=== PATIENT | male | born 1975 | race Caucasian/White ===

== ENCOUNTER 2019-12-28 10:24 | Emergency (ER) | payer BC, SELFPAY ==
[2019-12-28 10:26] VITALS: BP 120/70; PULSE 112; RESP 18; TEMP 39.2; O2SAT 93; BMI 33.0
--- NOTE | 2019-12-28 10:49 | EKG12_ITS ---
Test Reason : GEN ILLNESS Blood Pressure : / mmHG Vent. Rate : 103 BPM Atrial Rate : 103 BPM P-R Int : 134 ms QRS Dur : 082 ms QT Int : 324 ms P-R-T Axes : 007 089 030 degrees QTc Int : 424 ms Sinus tachycardia Otherwise normal ECG Confirmed by JAYLYN FINNEY, KYLIE ([id number]), copy editor ISRRAEL PANDYA ([id number]) on 12/30/2019 9:03:25 AM Referred By: Confirmed By:KYLIE DE LA O MD
--- NOTE | 2019-12-28 10:56 | NURSING ---
NO OLD EKGS
[2019-12-28 11:05] VITALS: BP 131/75; PULSE 99; RESP 33; TEMP 39.1; O2SAT 90
[2019-12-28] MEDS: Ketorolac 30 MG/ML Syringe IV (11:19)
[2019-12-28] MEDS: 0.9% Normal Saline 1,000 ML 999 ML IV ×2 (11:19→13:21)
[2019-12-28] MEDS: 0.9% Normal Saline 1,000 ML 250 ML IV (11:25)
--- NOTE | 2019-12-28 11:29 | ED.VIS.GEN ---
History of Present Illness Chief Complaint: General Illness Informant: Patient Narrative: 44-year-old male presents for the evaluation of fever diarrhea and cough. He has been sick for 1 week. He states he has had 2 Covid test that were negative. He continues to have diarrhea and fever. He notes that his abdomen is slightly sore in the right upper quadrant with coughing and touch. He notes generalized body aches and states it has been hard for him to eat and drink. He denies any significant medical problems. He has not taken any antidiarrheal medication. He went to urgent care and was given prednisone Augmentin and Tessalon and albuterol MDI. Past Medical History - Allergies and Home Meds Allergies/Adverse Reactions: Allergies No Known Allergies Allergy (Verified 12/28/19 10:29) Primary Care Physician: Adonay Bo MD [Primary Care Provider] - Prior records reviewed: Yes Past Medical History: None Surgical History: noncontributory Drugs: None Review of Systems General: Reports: Chills, Fever, Malaise. Denies: Sweats Eyes: Reports: - - Loss of smell/taste. Denies: Visual changes - bilaterally, Diplopia ENT: Denies: Rhinorrhea, Sore throat Cardiovascular: Denies: Chest pain, Palpitations Respiratory: Reports: Dyspnea, Cough. Denies: Dyspnea on exertion Gastrointestinal: Reports: Abdominal pain, Diarrhea. Denies: Nausea, Vomiting, Melena, Hematochezia Genitourinary: Denies: Dysuria, Hematuria, Frequency Musculoskeletal: Reports: Myalgias. Denies: Back pain, Extremity Pain Skin: Denies: Rash, Wounds Neurological: Reports: Headache. Denies: Weakness, Numbness Physical Exam Vital Signs/Narrative: Vital Signs Temp Pulse Resp BP Pulse Ox 12/28/19 10:26 102.6 F H 112 H 18 120/70 93 General: Well nourished, Well developed, No Acute Distress Head: Normocephalic, Atraumatic Eyes: Perrl, EOMI ENT: Moist mucous membranes, No rhinorrhea Neck: Supple, Nontender Cardiovascular: Regular rate, Regular rhythm, No murmurs, Tachycardia Respiratory: No distress, CTA bilaterally, Chest nontender Abdomen: Soft, Nontender, Nondistended, Normal bowel sounds Back: Nontender, Normal Inspection Extremities: Nontender, No edema Skin: Normal color, No rash Neurological: Alert, Oriented x3, Cranial nerves II-XII grossly intact, Normal Strength, Normal Sensation Psychological: Normal affect, Normal Mood Diagnostic/Tx/Re-eval Clinical Impression(s) from Imaging Studies Chest X-Ray 12/28/19 11:40 IMPRESSION: Bilateral pneumonia. Electronically Signed: Asif Angel MD at 12:18 EDT Tel , Service support , Laboratory Last Values WBC 7.8 K/mm3 (4.4-11.0) 12/28/19 11:30 RBC 4.92 M/mm3 (4.6-6.2) 12/28/19 11:30 Hgb 15.2 g/dL (13.0-16.5) 12/28/19 11:30 Hct 44.9 % (40-54) 12/28/19 11:30 MCV 91.3 fL (80-94) 12/28/19 11:30 MCH 30.9 pg (27.0-32.0) 12/28/19 11:30 MCHC 33.9 g/dL (32-36) 12/28/19 11:30 RDW Std Deviation 41.1 fl (35.1-43.9) 12/28/19 11:30 RDW Coeff of Jatin 12.4 % (11.6-14.6) 12/28/19 11:30 Plt Count TNP 12/28/19 11:30 MPV 11.3 fl (6.2-12.0) 12/28/19 11:30 Immature Gran % (Auto) 1.200 % (0.0-0.9) H 12/28/19 11:30 Neut % (Auto) 79.3 % (47-70) H 12/28/19 11:30 Lymph % (Auto) 9.7 % (19-41) L 12/28/19 11:30 [place] % (Auto) 9.6 % (0-10) 12/28/19 11:30 Eos % (Auto) 0.1 % (0-5) 12/28/19 11:30 Baso % (Auto) 0.1 % (0-1) 12/28/19 11:30 Absolute Neuts (auto) 6.2 X10^3/uL (2.0-7.7) 12/28/19 11:30 Absolute Lymphs (auto) 0.76 X10^3/uL (0.83-4.51) L 12/28/19 11:30 Nucleated RBC % 0 % (0-5) 12/28/19 11:30 Platelet Estimate ADEQUATE (ADEQ) 12/28/19 11:30 PT 13.1 SECONDS (11.7-14.9) 12/28/19 11:30 INR 1.0 12/28/19 11:30 APTT < 24.1 Seconds (24.1-36.2) L 12/28/19 11:30 Sodium 134 mmol/L (136-145) L 12/28/19 11:30 Potassium 4.4 mmol/L (3.5-5.1) 12/28/19 11:30 Chloride 103 mmol/L (98-107) 12/28/19 11:30 Carbon Dioxide 19.0 mmol/L (21.0-32.0) L 12/28/19 11:30 Anion Gap 12 (5-15) 12/28/19 11:30 BUN 15 mg/dL (7-18) 12/28/19 11:30 Creatinine 1.03 mg/dL (0.70-1.30) 12/28/19 11:30 Estim Creat Clear Calc 103.43 ml/min 12/28/19 11:30 Est GFR (MDRD) Af Amer 101 mL/min (>60) 12/28/19 11:30 Est GFR (MDRD) Non-Af 83 mL/min (>60) 12/28/19 11:30 BUN/Creatinine Ratio 14.6 RATIO (-20) 12/28/19 11:30 Glucose 112 mg/dL (74-106) H 12/28/19 11:30 Lactic Acid 1.0 mmol/L (0.4-1.9) 12/28/19 11:30 Calcium 7.7 mg/dL (8.5-10.1) L 12/28/19 11:30 Total Bilirubin 0.60 mg/dL (0.20-1.00) 12/28/19 11:30 AST 56 U/L (15-37) H 12/28/19 11:30 ALT 52 U/L (16-61) 12/28/19 11:30 Alkaline Phosphatase 52 U/L (45-117) 12/28/19 11:30 Troponin I < 0.015 ng/mL (<0.045) 12/28/19 11:30 Total Protein 6.8 g/dL (6.4-8.2) 12/28/19 11:30 Albumin 3.3 g/dL (3.2-5.0) 12/28/19 11:30 Globulin 3.5 g/dL (2.2-4.2) 12/28/19 11:30 Albumin/Globulin Ratio 0.9 RATIO (0.9-2.4) 12/28/19 11:30 Urine Color Yellow (Yellow) 12/28/19 11:30 Urine Clarity Clear (Clear) 12/28/19 11:30 Urine pH 6.0 (5.0 - 8.0) 12/28/19 11:30 Ur Specific [place] 1.020 (1.002-1.030) 12/28/19 11:30 Urine Protein 100 mg/dl (Negative) H 12/28/19 11:30 Urine Glucose (UA) Normal mg/dl (Normal) 12/28/19 11:30 Urine Ketones 5 mg/dl (Negative) H 12/28/19 11:30 Urine Occult Blood 150 /ul (Negative) H 12/28/19 11:30 Urine Nitrite Negative (Negative) 12/28/19 11:30 Urine Bilirubin Negative mg/dL (Negative) 12/28/19 11:30 Urine Urobilinogen Normal mg/dl (Normal) 12/28/19 11:30 Ur Leukocyte Esterase 25 /ul (Negative) H 12/28/19 11:30 Urine RBC 0 SEEN /hpf (0-5) 12/28/19 11:30 Urine WBC 0-5 SEEN /hpf (0-5) 12/28/19 11:30 Ur Squamous Epith Cells 0 SEEN /hpf (0-5) 12/28/19 11:30 Urine Bacteria 1+ /hpf (None Seen) 12/28/19 11:30 Urine Mucus 2+ /hpf (<or=2+) 12/28/19 11:30 - EKG Initial EKG Interpretation: Sinus Tachycardia - EKG demonstrates a sinus tachycardia at a rate of 103 without ectopy. - Medical Decision Making Patient received Toradol and IV fluids. Chest x-ray is concerning for Covid and his symptoms are very concerning for Covid. We will send a PCR test. His vital signs are reassuring. I recommend that he continue the antibiotics prednisone and inhaler at home. Continue to hydrate. Imodium for diarrhea return if worsening or concerns ED Disposition - Plan for ED Patient: Disposition: Home or Assisted Living Diagnosis: COVID-19 Referrals: Adonay Bo MD [Primary Care Provider] - As Needed Additional Instructions: Continue your medications as prescribed Drink plenty of fluids to stay hydrated I would recommend Imodium as needed for diarrhea.
[2019-12-28 11:40] LABS: Red Blood Cells-Urine 0 SEEN /hpf (0-5); Squamous Epithelial Cells - UA 0 SEEN /hpf (0-5)
--- NOTE | 2019-12-28 11:40 | RAD_ITS ---
STUDY: X-RAY CHEST REASON FOR EXAM: Male, 44 years old. COUGH, SOB, DIARRHEA, NO TASTE OR SMELL FOR 1 WEEK. TECHNIQUE: Single AP portable view of the chest. COMPARISON: None. FINDINGS: Patchy alveolar opacities throughout both lungs consistent with bilateral pneumonia. There is no demonstrated pleural abnormality. Normal size heart. Normal mediastinum and aracelis. Normal visualized pulmonary arteries. Normal visualized aortic arch and descending thoracic aorta. Normal visualized thoracic spine. Normal visualized ribs, clavicles, and shoulders. There is no demonstrated abnormality of the visualized soft tissue structures of the upper abdomen. RAD/Chest 1 View (Portable) IMPRESSION: Bilateral pneumonia. Electronically Signed: Asif Angel MD at 12:18 EDT Tel , Service support ,
[2019-12-28 11:44] LABS: Color, Urine Yellow (Yellow); Glucose, Dipstick Normal (Normal); Ketone-Dipstick 5 mg/dl (Negative); Leukocyte Esterase-Dipstick 25 /ul (Negative); Nitrite-Dipstick Negative (Negative); Occult Blood-Urine 150 /ul (Negative); Protein-Dipstick 100 mg/dl (Negative); Urine Bilirubin Dipstick Negative (Negative); Urine Clarity Clear (Clear); Urine Urobilinogen Normal (Normal)
[2019-12-28 11:47] LABS: Absolute Lymphocyte Count 0.76 X10^3/uL (0.83-4.51); Absolute Neutrophil Count 6.2 X10^3/uL (2.0-7.7); Basophil# 0.01 X10^3/uL; Basophil% 0.1 % (0-1); Eosinophil# 0.01 X10^3/uL; Eosinophils% 0.1 % (0-5); Hematocrit 44.9 % (40-54); Hemoglobin 15.2 g/dL (13.0-16.5); Lymphocyte # 0.76 X10^3/ul (4.0); Lymphocyte % 9.7 % (19-41); Mean Corp Hgb Conc 33.9 g/dL (32-36); Mean Corpuscular Hgb 30.9 pg (27.0-32.0); Mean Corpuscular Volume 91.3 fL (80-94); Mean Platelet Vol. 11.3 fl (6.2-12.0); Monocyte# 0.75 X10^3/uL; Monocyte% 9.6 % (0-10); NRBC Flagged by Analyzer 0 % (0-5); Neutrophil % 79.3 % (47-70); POSITIVE COUNT YES; RBC Distribution Width CV 12.4 % (11.6-14.6); RBC Distribution Width SD 41.1 fl (35.1-43.9); Red Blood Count 4.92 M/mm3 (4.6-6.2); White Blood Count 7.8 K/mm3 (4.4-11.0)
[2019-12-28 11:50] LABS: Bacteria 1+ /hpf (None Seen); Differential Indicated SCAN CRITERIA MET; Mucous, Urine 2+ /hpf (<or=2+); White Blood Cells 0-5 SEEN /hpf (0-5)
[2019-12-28 11:52] LABS: Prothrombin Time (Protime)PT. 13.1 SECONDS (11.7-14.9)
[2019-12-28 12:00] VITALS: BP 117/78; PULSE 89; RESP 21; TEMP 37.9; O2SAT 93
[2019-12-28 12:01] LABS: Partial Thromboplast Time < 24.1 Seconds (24.1-36.2)
[2019-12-28 12:23] LABS: ALB/GLOB Ratio 0.9 RATIO (0.9-2.4); AST(SGOT) 56 U/L (15-37); Alanine Aminotransfer ALT/SGPT 52 U/L (16-61); Albumin, Serum 3.3 g/dL (3.2-5.0); Alkaline Phosphatase 52 U/L (45-117); Anion Gap 12 (5-15); BUN 15 mg/dL (7-18); BUN/Creat Ratio 14.6 RATIO (10-20); Calcium,Total 7.7 mg/dL (8.5-10.1); Chloride 103 mmol/L (98-107); Creatinine, Serum 1.03 mg/dL (0.70-1.30); EST Glomerular Filtration Rate 83 mL/min (>60); Est Glom Filt Rate - Afr Amer 101 mL/min (>60); Estimated Creatinine Clearance 103.43 ml/min; Globulin 3.5 g/dL (2.2-4.2); Glucose 112 mg/dL (74-106); Potassium 4.4 mmol/L (3.5-5.1); Protein, Total 6.8 g/dL (6.4-8.2); Sodium Level 134 mmol/L (136-145)
[2019-12-28 12:34] LABS: Platelet Estimate ADEQUATE (ADEQ)
[2019-12-28 13:00] VITALS: BP 121/73; PULSE 83; RESP 22; TEMP 37.3; O2SAT 93
[2019-12-28 14:22] VITALS: BP 109/61; PULSE 80; RESP 16; O2SAT 94
== END 2019-12-28 14:43 | disposition home or self-care (01) ==
PROVIDERS: Emergency Provider Emergency Medicine; PCP Family Medicine
DX: U07.1 COVID-19 (principal); J12.89 Other viral pneumonia
CPT/HCPCS: 71045; 80053; 81001; 83605; 84484; 85025; 85610; 85730; 87040; 87426; 87635; 93005; 96361; 96374; 99284; J7030; A4216; U0003